=== PATIENT | female | born 1960 | race Caucasian/White ===

== ENCOUNTER 2017-09-11 03:03 | Day surgery (SDC) | payer SELFPAY ==
[2017-09-11] MEDS ORDERED: Fentanyl 100 MCG/2 ML VIAL ONE ×2 (03:38→04:54)
[2017-09-11] MEDS ORDERED: Midazolam HCl 2 mg/2 ml Vial ONE (04:53)
[2017-09-11] MEDS ORDERED: Succinylcholine Chloride 20 MG/ML 10 ml SYRINGE FS ONE (05:26)
[2017-09-11] MEDS ORDERED: Propofol 200 MG/20 ML VIAL ONE (05:26)
[2017-09-11] MEDS ORDERED: Lidocaine 2% PF 10 ML AMP (For Epidural Use) ONE (05:26)
[2017-09-11] MEDS ORDERED: Glycopyrrolate 0.2 MG/ML 5 ML SYRINGE ONE (05:26)
[2017-09-11] MEDS ORDERED: Ondansetron HCl/PF 4 MG/2 ML Vial ONE (05:26)
[2017-09-11] MEDS ORDERED: Ketorolac Tromethamine 30 MG/ML VIAL ONE (05:26)
--- NOTE | 2017-09-11 05:32 | HP ---
CHIEF COMPLAINT: Right groin pain/masses. The patient is a 57-year-old white female. She gives a 1 year history of a right groin mass/bulge. She put off caring for this because she was caring for her ill parents. Last night the mass became firm and painful. She presented to the emergency room in [place]. This was felt to be an incarc erated hernia. Attempts to reduce it were made unsuccessfully. A CT scan was subsequently obtained and the patient was transferred to this facility. Laboratory studies including CBC and comprehensi ve metabolic panel were obtained and were unremarkable. In this facility, further attempts were made to reduce the mass including Trendelenburg, narcotics a nd an ice pack. I was called at 4:00 this morning and with the history that the patient had a painf ul nonreducible mass consistent with an incarcerated right inguinal hernia. PAST MEDICAL HISTORY: Depression/ADD. PAST SURGICAL HISTORY: x2. CURRENT MEDICATIONS: Zoloft, collateral, Vyvanse. ALLERGIES: No known drug allergies. SOCIAL HISTORY: She is with 2 grown children. She smoked until 3 months ago and no longer smokes. She denies alcohol use. 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 REVIEW OF SYSTEMS: Otherwise unremarkable. FAMILY HISTORY: Noncontributory. PHYSICAL EXAMINATION: VITAL SIGNS: She is afebrile. Vital signs within normal limits. GENERAL: She is a well-developed, well-nourished, pleasant white female resting in bed. She is cathy rt and oriented x3. HEENT: Unremarkable. NECK: Supple, without mass. LUNGS: Clear to auscultation. CARDIAC: Regular rate and rhythm without murmur. ABDOMEN: Soft, nontender, nondistended. : There is a tender, soft mass in the right groin. It appears that I am unable to fully reduce t his. CT was examined and there is a right groin mass. I am not certain at all if this is a hernia and if it is a hernia there is certainly no bowel in it at the time of the CT scan. ASSESSMENT: Patient with a right groin mass. While this could be a hernia, it could also be a lymp h node, although it appears that I am unable to fully reduce this which would not go along with this being a lymph node. PLAN: Right groin exploration with repair of hernia. I have discussed the operation in detail with the patient as well as potential risks. She understands and agrees to proceed with surgery at this time.
[2017-09-11] MEDS ORDERED: Bupivacaine 0.25% HCL 30 ML VIAL ONE (05:34)
[2017-09-11] MEDS ORDERED: Lidocaine 2% w/Epinephrine 1:200K 20 ML VIAL ONE (05:34)
--- NOTE | 2017-09-11 06:33 | OP ---
DATE OF PROCEDURE: 09/11/2017 PREOPERATIVE DIAGNOSIS: Right groin mass, possible right femoral hernia. POSTOPERATIVE DIAGNOSIS: Right inguinal lymphadenopathy. OPERATION PERFORMED: Right groin exploration with lymph node biopsy. SURGEON: Connor Stanford M.D. ANESTHESIA: General endotracheal. INDICATIONS: The patient is a 57-year-old female. She presented to the emergency room where she wa s felt to have an incarcerated inguinal hernia. Attempts were made by 2 different physicians at [address] [place] [id number] to reduce said hernia[address] CT scan reviewed by myself was equivocal for a hernia. O n examination it did not appear that there was a solid mass, it was typical of lymphadenopathy and i t felt as though there was a mass that I was able to reduce. She had significant discomfort in this area. I therefore recommended exploration for possible symptomatic hernia in this area. DESCRIPTION OF OPERATION: Informed consent was obtained. The patient taken to the operating room w here general endotracheal anesthesia was obtained with the patient in supine position. Right groin was prepped with ChloraPrep and draped in sterile fashion. The area of some degree of fullness was appreciated. This was clearly inferior to the inguinal ligament. Local anesthetic was infiltrated and transverse incision was created inferior to the inguinal ligament. Dissection was carried throu gh skin and subcutaneous tissue. I carefully explored the area of the femoral triangle, identifying the tubercle and the femoral vein as well as the shelving edge of the inguinal ligament and there w as no evidence of hernia protruding to this area. There was some lymphadenopathy within the area. I could not define a sac that might have been filled with fluid. I explored the tissue around it to ensure that there was no other mass and I could find none. I biopsied some of the lymphadenopathy, ligating all investing tissue between clamps and 2-0 silk ties and passed this off the field. Hemo stasis was meticulous. The wound was closed in layers with 3-0 Vicryl and 4-0 Monocryl and Dermabon d was placed externally. There were no complications. The patient tolerated the procedure well and was taken to recovery in stable condition.
== END 2017-09-11 11:39 | disposition home or self-care (01) ==
LOC: ERS 03:03 → SDC/OP 05:11 → ERS 05:12 → SDC/OP 11:39
PROVIDERS: ATTEND Specialist
PROC: 07BH0ZX Excision of Right Inguinal Lymphatic, Open Approach, Diagnostic (ICD-10-PCS; principal; 2017-09-11)
DX: R59.0 Localized enlarged lymph nodes (principal); F32.9 Major depressive disorder, single episode, unspecified; F98.8 Other specified behavioral and emotional disorders with onset usually occurring in childhood and adolescence; Z79.899 Other long term (current) drug therapy; Z87.891 Personal history of nicotine dependence
CPT/HCPCS: 88184; 88305; 96374; J1885; J2001; J2250; J2405; J2704; J3010; S0020